=== PATIENT | male | born 1950 | race Caucasian/White ===

== ENCOUNTER 2023-10-22 14:05 | Emergency (ER) | payer MEDICARE, SELFPAY ==
[2023-10-22 14:29] VITALS: BP 175/76; PULSE 83; RESP 16; TEMP 37; O2SAT 99; BMI 34.4
--- NOTE | 2023-10-22 14:32 | ED_ITS ---
HPI - Ear Problem General Chief complaint: Ear Problems Stated complaint: Object stuck in ear Time Seen by Provider: 10/22/23 14:31 Source: patient Mode of arrival: ambulatory Limitations: no limitations History of Present Illness HPI Narrative: Patient is a 73-year-old male presenting to the emergency department with complaint of foreign body to left ear. States that he noticed the tip of his hearing aid missing this morning. Went to [facility] to get a replacement tip and when they looked in his ear, they told him that a piece of the hearing was in his ear canal and advised him to be seen at urgent care or the emergency department. He denies pain. Complaint: foreign body Location: left ear Discharge from ear: no Treatment prior to arrival: none Related Data Allergies Allergy/AdvReac Type Severity Reaction Status Date / Time No Known Allergies Allergy Verified 10/22/23 14:31 Review of Systems Review of Systems: As per HPI. Yes all other systems are reviewed and are negative Constitutional: Constitutional: Reports as per HPI Physical Exam Vital Signs: Vital Signs: Last Vital Signs Temp 98.6 F 10/22/23 14:29 Pulse 83 10/22/23 14:29 Resp 16 10/22/23 14:29 BP 175/76 H 10/22/23 14:29 Pulse Ox 99 10/22/23 14:29 O2 Del Method Room Air 10/22/23 14:29 BMI result Body Mass Index 34.4 Vital signs have been reviewed and appear to be correct. Blood pressure elevated. Heart rate normal. Respiratory rate normal. Temperature normal. Oxygen saturation normal. Const: General: cooperative, healthy appearing and no acute distress Orientation/consciousness: oriented to person, oriented to place, oriented to time and patient oriented x3 Limitations: no limitations HEENT: Head: Yes normocephalic and Yes atraumatic Ears: external ears normal, TM's normal bilaterally (after FB removed), EAC's normal (after FB removed) and Abnormal EAC present foreign body on the left (piece of hearing aid visualized without needing otoscope) General nose exam: Normal external nose present Face and sinus: Yes face symmetric Mouth: oropharynx normal and moist mucous membranes Throat: Yes uvula midline Eyes: Pupils: Equal, round and reactive pupils present Neck: Neck: Yes normal visual inspection and Yes supple Resp: Effort & Inspection: normal respiratory effort and able to speak in complete sentences Auscultation: clear to auscultation bilaterally Cardio: Rate: regular rate Rhythm: regular rhythm Heart sounds: S1 normal heart sound present and S2 normal heart sound present Skin: General skin exam: elasticity normal and turgor normal Neuro: General: oriented to person, oriented to place, oriented to time, patient oriented x3, moves all extremities, no focal motor deficits and CN's II- XI intact bilaterally Cranial nerves: Yes Equal, round and reactive pupils present Cognition (Neuro): normal cognition Extrem: General: Yes full ROM, Yes no pedal edema and Yes no calf tenderness Psych: Mental Status: mental status grossly normal Affect: normal affect Thought process: Normal thought process present Procedures Foreign Body Removal Time Out Performed: yes Site: left and ear Description of foreign body: other (Piece of hearing aid) Sedation/Analgesia: none Technique: removal with forceps Confirmed by:: direct visualization Complications: none Medical Decision Making Medical Decision Making MDM Narrative: Patient is a 73-year-old male presenting to the emergency department with complaint of foreign body to left ear. On exam patient is awake, A+Ox3, BP elevated VS otherwise WNL, afebrile, normal neurological exam without focal deficits, physical exam findings as above. Given reported symptoms and physical exam findings, initial differential includes foreign body, cerumen impaction, otitis externa, otitis media. Foreign body visualized and removed in triage as per procedure note. Patient tolerated well, no difficulties. Return precautions discussed. Patient verbalized understanding of and agreement with plan. Differential Diagnosis Differential Diagnoses: The differential diagnosis associated with the presentation includes As per MDM. External Record Review External record reviewed: Inpatient record, Office record and Outpatient record Discharge Plan Discharge Print Language: Argentine
== END 2023-10-22 14:41 | disposition home or self-care (01) ==
PROVIDERS: Emergency Provider Emergency Medicine
DX: T16.2XXA Foreign body in left ear, initial encounter (principal); W44.G1XA Audio device entering into or through a natural orifice, initial encounter; Y93.9 Activity, unspecified; Y92.9 Unspecified place or not applicable; Y99.8 Other external cause status
CPT/HCPCS: 69200; 99281; 99284